=== PATIENT | male | born 2000 | race Hispanic/Latino ===

== ENCOUNTER 2018-05-17 00:08 | Emergency (ER) | payer SELFPAY ==
[2018-05-17] MEDS ORDERED: Nitrazine Tape 1 ROLL ONE (00:47)
[2018-05-17] MEDS ORDERED: Fluorescein Opthalmic Strip ONE (00:55)
[2018-05-17] MEDS ORDERED: Proparacaine 0.5% Opth 15 ML BOT ONE (00:56)
== END 2018-05-17 01:20 | disposition home or self-care (01) ==
LOC: SCSER 00:08
DX: T26.02XA Burn of left eyelid and periocular area, initial encounter (principal); S05.02XA Injury of conjunctiva and corneal abrasion without foreign body, left eye, initial encounter; I10 Essential (primary) hypertension; X08.8XXA Exposure to other specified smoke, fire and flames, initial encounter
CPT/HCPCS: 99283